=== PATIENT | male | born 1960 | race Caucasian/White ===

== ENCOUNTER 2025-03-13 14:10 | Inpatient (IN) | payer MEDICAID, OTHER ==
[~2025-03-13] VITALS: Ht 170.2 cm; Wt 68.9 kg
[2025-03-13 14:18] VITALS: O2SAT 97
[2025-03-13 14:59] LABS: BASOPHILS % 0.8 % (0.0-2.0); EOSINOPHILS % 0.8 % (0.0-5.0); HEMATOCRIT. 46.0 % (42.0-52.0); HEMOGLOBIN. 15.4 g/dL (14.0-18.0); LYMPHOCYTES % 10.5 % (20.0-50.0); MEAN PLATELET VOLUME 6.0 fl (7.4-10.4); MONOCYTES % 7.8 % (2.0-8.0); NEUTROPHILS % 80.1 % (40.0-76.0); PLATELET 458 x1000/uL (130-400); RED BLOOD CELL COUNT 5.18 mill/uL (4.7-6.1); RED CELL DISTRIBUTION WIDTH 13.4 % (11.6-14.6)
[2025-03-13 15:13] LABS: CREATININE 1.1 mg/dL (0.6-1.3); UREA NITROGEN BLOOD 10 mg/dL (9-23)
[2025-03-13] MEDS: SODIUM CHLORIDE 0.9% (SEPSIS BOLUS) IV ONE (15:13)
[2025-03-13 15:14] LABS: ASPARTATE AMINOTRANSFERASE 13 IU/L (<34)
[2025-03-13 15:15] LABS: BILIRUBIN DIRECT 0.1 mg/dL (<=3.0); BILIRUBIN TOTAL 0.4 mg/dL (0.1-1.0); PROTEIN TOTAL 9.0 g/dL (6.0-8.3)
[2025-03-13] MEDS: PIPERACILLIN/TAZO 3.375G/50ML 50 ML IV ONE (15:19)
[2025-03-13 15:28] LABS: INR 1.0
[2025-03-13] MEDS: VANCOMYCIN 1G PREMIX 200 ML IV ONE (16:18)
[2025-03-13 18:00] LABS: CLARITY URINE CLEAR (CLEAR); COLOR URINE YELLOW (YELLOW); GLUCOSE URINE 3+ (NEGATIVE); KETONES URINE NEGATIVE (NEGATIVE); LEUKOCYTE ESTERASE URINE NEGATIVE (NEGATIVE); NITRITE URINE NEGATIVE (NEGATIVE); OCCULT BLOOD URINE NEGATIVE (NEGATIVE); PH URINE 6.0 (4.5-8.0); PROTEIN URINE NEGATIVE (NEGATIVE); SPECIFIC GRAVITY URINE 1.035 (1.005-1.030); UROBILINOGEN URINE 1.0 E.U./dL (0.2-1.0)
[2025-03-13 18:23] LABS: BACTERIA URINE NONE SEEN; RBC URINE 0-2 /hpf (0-2); SQUAMOUS EPITHELIAL CELL URINE RARE /lpf (RARE/1+); WBC URINE 0-2 /hpf (0-2)
[2025-03-13 22:15] VITALS: BP 100/69; PULSE 80; RESP 20; TEMP 36.4; O2SAT 98
[2025-03-13 22:30] VITALS: BP 100/69; PULSE 82; RESP 18; TEMP 36.8628
[2025-03-14] MEDS ORDERED: DEXTROSE 50% WATER 50ML SYRINGE IV PRN ×2 (01:00→12:15)
[2025-03-14] MEDS ORDERED: HYDROCODONE/ACETAMINOPHEN 5/325MG TABLET PO PRN (01:00)
[2025-03-14 04:00] VITALS: BP 102/70; PULSE 81; RESP 20; TEMP 36.4
[2025-03-14] MEDS: VANCOMYCIN 750MG PREMIX 150 ML IV SCH (06:00)
[2025-03-14] MEDS: BLOOD SUGAR DIAGNOSTIC STRIP TEST SCH ×2 (07:20→13:07)
[2025-03-14 08:00] VITALS: BP 107/69; PULSE 86; RESP 18; TEMP 36.3; O2SAT 96
[2025-03-14] MEDS: INSULIN LISPRO 100 UNITS/ML SUBCUT SCH ×2 (09:55→13:41)
[2025-03-14] MEDS: INSULIN GLARGINE 100 UNITS/ML SUBCUT SCH (09:56)
[2025-03-14] MEDS ORDERED: NALOXONE HCL 0.4MG/ML VIAL IV PRN (11:45)
[2025-03-14 12:00] VITALS: BP 105/70; PULSE 87; RESP 18; TEMP 36.6; O2SAT 96
[2025-03-14] MEDS ORDERED: ACETAMINOPHEN 325MG TABLET PO PRN (12:15)
[2025-03-14] MEDS ORDERED: ONDANSETRON HCL 4MG/2ML INJ IV PRN (12:15)
[2025-03-14] MEDS: PANTOPRAZOLE SODIUM 40 MG/VIAL IV SCH (13:00)
[2025-03-14] MEDS: PIPERACILLIN/TAZO 3.375G/50ML 50 ML IV SCH (13:10)
[2025-03-14] MEDS ORDERED: PANTOPRAZOLE SODIUM 40 MG/VIAL IV ONE (13:53)
[2025-03-14 16:00] VITALS: BP 91/60; PULSE 84; RESP 18; TEMP 36.2; O2SAT 96
[2025-03-14 20:00] VITALS: BP 107/69; PULSE 88; RESP 18; TEMP 36.6; O2SAT 98
[2025-03-14] MEDS: ATORVASTATIN CALCIUM 40MG TABLET PO SCH (21:38)
[2025-03-15] VITALS: BP_SYST 111; BP_SYST 93; BP_DIAS 59; BP_DIAS 62; PULSE 90; RESP 18; TEMP 36.6; O2SAT 100
[2025-03-15 04:00] VITALS: BP 91/49; PULSE 77; RESP 18; TEMP 36.5; O2SAT 97
[2025-03-15] MEDS ORDERED: POLYMYXIN B SULFATE 500000 UNITS/VIAL ONE (06:58)
[2025-03-15] MEDS ORDERED: LIDOCAINE HCL/EPINEPHRINE 1%-EPI 1:100,000 20ML VIAL ONE (06:58)
[2025-03-15] MEDS ORDERED: LIDOCAINE HCL/PF 1% 10 MG/ML 5ML VIAL ONE ×2 (07:27)
[2025-03-15] MEDS ORDERED: PROPOFOL 200MG/20ML VIAL IV ONE ×2 (07:28)
[2025-03-15] MEDS ORDERED: MIDAZOLAM HCL 2 MG/2 ML VIAL ONE ×2 (07:30)
[2025-03-15] MEDS ORDERED: LABETALOL 5MG/ML 4ML INJ IV PRN (07:45)
[2025-03-15] MEDS ORDERED: HYDROMORPHONE HCL/PF 1MG/ML INJ IV PRN (07:45)
[2025-03-15] MEDS ORDERED: ONDANSETRON HCL 4MG/2ML INJ IV PRN (07:45)
[2025-03-15] MEDS ORDERED: HYDROMORPHONE HCL/PF 1MG/ML INJ ONE ×2 (07:45)
[2025-03-15] MEDS ORDERED: DEXAMETHASONE 4MG/ML 1ML VIAL ONE ×2 (07:50)
[2025-03-15] MEDS ORDERED: ONDANSETRON HCL 4MG/2ML INJ ONE ×2 (07:50)
[2025-03-15 08:00] VITALS: BP 107/65; PULSE 76; RESP 18; TEMP 36.5; O2SAT 95
[2025-03-15] MEDS ORDERED: HYDRALAZINE 20MG/ML VIAL IV PRN ×2 (08:00→08:04)
[2025-03-15 09:23] LABS: BASOPHILS % 0.6 % (0.0-2.0); EOSINOPHILS % 1.4 % (0.0-5.0); HEMATOCRIT. 39.6 % (42.0-52.0); HEMOGLOBIN. 13.5 g/dL (14.0-18.0); LYMPHOCYTES % 17.8 % (20.0-50.0); MEAN PLATELET VOLUME 6.3 fl (7.4-10.4); MONOCYTES % 9.0 % (2.0-8.0); NEUTROPHILS % 71.2 % (40.0-76.0); PLATELET 343 x1000/uL (130-400); RED BLOOD CELL COUNT 4.54 mill/uL (4.7-6.1); RED CELL DISTRIBUTION WIDTH 12.9 % (11.6-14.6)
[2025-03-15 09:43] LABS: CREATININE 0.8 mg/dL (0.6-1.3); UREA NITROGEN BLOOD 9 mg/dL (9-23)
[2025-03-15 12:00] VITALS: BP 99/55; PULSE 86; RESP 17; TEMP 36.4; O2SAT 98
[2025-03-15] MEDS ORDERED: VANCOMYCIN 750MG PREMIX 150 ML IV SCH (21:00)
[2025-03-16] MEDS ORDERED: ENOXAPARIN 40MG/0.4ML SYR SUBCUT SCH (09:00)
[2025-03-16] MEDS ORDERED: FAMOTIDINE 20MG/2ML VIAL IV SCH (09:00)
== END 2025-03-15 15:19 | disposition left against medical advice (07) | DRG 314 ==
LOC: ER 14:10 → EDBEDREQSVC 18:41 → EDBEDREQTM 18:41 → EDBEDREQ 18:42 → ENRESERV 21:49 → 6EST 22:19
PROVIDERS: ADMIT Internal Medicine; ATTEND Internal Medicine
PROC: 0Y6R0Z1 Detachment at Right 2nd Toe, High, Open Approach (ICD-10-PCS; principal; 2025-03-15)
DX: E11.52 Type 2 diabetes mellitus with diabetic peripheral angiopathy with gangrene (principal); M86.8X7 Other osteomyelitis, ankle and foot; E11.621 Type 2 diabetes mellitus with foot ulcer; E11.69 Type 2 diabetes mellitus with other specified complication; L97.519 Non-pressure chronic ulcer of other part of right foot with unspecified severity; I10 Essential (primary) hypertension; Z53.29 Procedure and treatment not carried out because of patient's decision for other reasons; Z79.899 Other long term (current) drug therapy; Z79.4 Long term (current) use of insulin; Z89.422 Acquired absence of other left toe(s)
CPT/HCPCS: 36415; 71045; 73630; 73700; 80048; 80076; 80202; 81003; 82962; 83036; 83605; 84145; 85025; 88304; 88311; 93005; 96365; 96367; 97116; 97162; 99291; A4606; J1100; J1171; J1815; J2003; J2004; J2250; J2405; J2470; J2543; J2704; J3373; J3490; J7030